=== PATIENT | female | born 1985 | race Caucasian/White ===

== ENCOUNTER → 2017-04-06 05:24 | Observation (INO) ==
[2017-04-06 01:38] LABS: Amphetamine Screen,Urine Negative ng/mL (Cutoff=1000); Barbiturate Screen,Urine Negative ng/mL (Cutoff=200); Benzodiazepines Screen,Urine Negative ng/mL (Cutoff=200); Bilirubin,Urine Negative (Negative); Blood,Urine Negative (Negative); Cannabinoid Screen,Urine Negative ng/mL (Cutoff = 50); Clarity,Urine Cloudy (Clear); Cocaine Screen,Urine Negative ng/mL (Cutoff= 300); Color,Urine Dark Yellow (Yellow); Glucose,Urine (UA) Normal (Normal); Ketones,Urine Negative (Negative); Leukocyte Esterase,Urine Negative (Negative); Nitrite,Urine Negative (Negative); Opiate Screen,Urine Negative ng/mL (Cutoff=300); PH,Urine 5.5 pH Units (5.0-8.0); Phencyclidine Screen,Urine Negative ng/mL (Cutoff=25); Protein,Urine Trace mg/dL (Neg-Trace); Specific Gravity,Urine 1.028 (1.010-1.025); Urobilinogen,Urine Normal (Normal)
[2017-04-06 01:51] LABS: Squamous Epithelial Cell,Urine Many per lpf (None-Few)
[2017-04-06 01:52] LABS: Bacteria,Urine Moderate per hpf (None-Few); Mucus,Urine Few (Few); WBC,Urine 0-3 per hpf (0-3)
--- NOTE | 2017-04-06 02:35 | OB/GYN History & Physical ---
Date of Encounter: 04/06/17 Time of Encounter: 02:15 Assessment and Plan (1) 35 weeks gestation of Current visit: Yes Status: Acute (2) Uterine contractions Current visit: Yes Status: Acute - NST assessment. - UA. Update: Patient showed a reactive NST. She did not show regular contractions indicative of labor. UA was not indicative of infection. UDS was negative. Patient will be discharged home. (3) GERD (gastroesophageal reflux disease) Current visit: Yes Status: Acute Patient will continue taking her home pepcid medication. Qualifiers: Qualified Code(s): K21.9 - Gastro-esophageal reflux disease without esophagitis History of Present Illness Chief complaint: Uterine contractions HPI: Ms. Redmond is a 31 year old female at 35 4/7 weeks gestation with a PMH of three c-sections that presents for labor evaluation. Patient says that she has been feeling regular contractions since yesterday morning. She says they started out 15 minutes apart and then stopped around 5 am this morning. They started back up again around 11 am and were 5 minutes apart then. She denies any vaginal fluid leakage or bleeding. She denies chest pain. She admits to some shortness of breath for the past 3 days. She denies fever. She admits to nausea throughout her , but denies vomiting. She denies KELLEY or vision changes. HepBSAg: Non-reactive (10/29/16) HIV Ag/Ab: Non-reactive T. Pallidum Ab: negative Rubella Ab: positive Varicella Ab: positive Blood Type: O+ Past Med Surg Social Fam HX - Past Medical History Medical history: no medical history Psychiatric history: no psych history - Past Surgical History Surgical History: appendectomy, - Social History Smoking Status: Former smoker Smokeless Tobacco Status: No Alcohol use: none Drug use: none - Family History Father Adopted: No Living Status: Still Living Hx Family Cardiac Disorders: Yes (history of heart attack, heart stents) Hx Family Endocrine Disorder: Yes (borderline diabetic) Obstetrical History - Pregnancies : 5 Para: 3 Term: 3 : 0 Ab's: 1 Livin Medications and Allergies Folic Acid 1 mg PO DAILY 01/02/16 [History] Vitamins 1 tab PO DAILY 01/02/16 [History] Famotidine [Pepcid] 1 tab PO DAILY 04/06/17 [History] 3 Allergy/AdvReac Type Severity Reaction Status Date / Time divalproex sodium Allergy Hives Verified 04/06/17 01:20 [From Depakote] Sulfa (Sulfonamide Allergy Hives Verified 04/06/17 01:20 Antibiotics) Exam - Constitutional Constitutional: well developed, well nourished, no acute distress, obese - Lungs Respiratory exam: CTAB - Cardiovascular Cardiovascular exam: RRR, +S1, +S2 - Abdomen Abdomen: Present: bowel sounds normal, gravid, diffuse tenderness (Minor tenderss to light palpation.) - Extremities Extremities exam: full ROM, normal capillary refill, normal inspection, radial pulses palpable and symmetrical Deep Tendon Reflex Grade: 2+ Normal Results Abnormal lab results Urine Clarity Cloudy (Clear) A 04/06/17 01:15 Ur Specific [place] 1.028 (1.010-1.025) H 04/06/17 01:15 Ur Squamous Epith Cells Many per lpf (None-Few) H 04/06/17 01:15 Urine Bacteria Moderate per hpf (None-Few) H 04/06/17 01:15 All other labs normal. - VTE Reasons for not Prescribing Prophylaxis: Treatment not Indicated - Low risk for VTE
[~2017-04-06 05:24] MED LIST: Famotidine 20 MG TABLET PO ONE
== END | disposition home or self-care (01) ==
LOC: 1NENULAB
PROVIDERS: ADMIT Obstetrics & Gynecology; ATTEND Obstetrics & Gynecology

== ENCOUNTER 2017-04-30 06:22 | Inpatient (IN) ==
[2017-04-30] MEDS ORDERED: Metoclopramide 10 MG/2 ML VIAL IVP ONE (06:46)
[2017-04-30] MEDS ORDERED: Oxytocin 20 units/ LR 1000 mL 20 UNIT/1,000 ML BAG IVC ONE (06:46)
[2017-04-30] MEDS ORDERED: Famotidine 20 MG/2 ML VIAL IVP ONE (06:46)
[2017-04-30] MEDS ORDERED: CeFAZolin Syr 3,000MG/30 ML 3,000 MG/30 ML SYRINGE IVPB ONE (06:46)
[2017-04-30] MEDS ORDERED: Ringers Solution, Lactated 1,000 ML ONE (06:49)
[2017-04-30] MEDS ORDERED: Oxytocin 20 units/ LR 1000 mL 20 UNIT/1,000 ML BAG IVC SCH ×2 (07:00→12:53)
[2017-04-30] MEDS ORDERED: Ringers Solution, Lactated 1,000 ML IVC SCH ×2 (07:00→08:00)
[2017-04-30 07:11] LABS: Basophils % 0.2 %; Eosinophils # 0.2 K/mcL (0.0-0.6); Eosinophils % 1.3 %; Hematocrit 39.6 % (35.3-44.9); Hemoglobin 13.4 g/dL (11.5-15.4); Immature Granulocytes % 0.5 % (0-4); Lymphocytes # 2.5 K/mcL (0.6-4.6); Lymphocytes % 16.7 %; Mean Corpuscular HGB Conc 33.8 g/dL (31.6-35.5); Mean Corpuscular Hemoglobin 29.8 pg (28.0-33.3); Mean Corpuscular Volume 88.2 fL (83.0-100.0); Monocytes % 6.6 %; Neutrophils # 11.2 K/mcL (1.6-8.9); Platelet Count 279 K/mcL (140-400); Red Blood Count 4.49 M/mcL (3.82-4.97); Red Cell Distribution Width 14.6 % (11.5-14.5); Segmented Neutrophils % 74.7 %
--- NOTE | 2017-04-30 07:26 | Anesthesia Evaluation PreOp ---
Date of Encounter: 04/30/17 Time of Encounter: 07:18 - Past History Planned Operation: Spinal for Primary csection Cardiac History: Denies any Significant Hx Pulmonary History: Former smoker SIGNALS COLLECTOR/ANALYST History: Denies Any Significant HX Other Medical History: Denies Any Significant HX, GERD Anesthesia History: No Prior Anesthetic Complications, Past Anesthesia ( appendectomy) : Yes Alcohol Use: none Drug use: none Medications and Allergies Folic Acid 1 mg PO DAILY 01/02/16 [History] Vitamins 1 tab PO DAILY 01/02/16 [History] Famotidine [Pepcid] 1 tab PO DAILY 04/06/17 [History] 3 Allergy/AdvReac Type Severity Reaction Status Date / Time divalproex sodium Allergy Hives Verified 04/06/17 01:20 [From Depakote] Sulfa (Sulfonamide Allergy Hives Verified 04/06/17 01:20 Antibiotics) - Meds/Allergy Pre-op Review Medications Reviewed: Yes Allergies Reviewed: Yes Beta Blockers on Current Med List: No Anesthesia Results - Labs 04/30/17 06:50 Anesthesia Exam Vital Signs Temperature 97.1 F L 04/30/17 06:56 Pulse Rate 97 04/30/17 06:56 Respiratory Rate 16 04/30/17 06:56 Blood Pressure 115/60 04/30/17 06:56 Temperature 97.1 F L 04/30/17 06:56 Pulse Rate 97 04/30/17 06:56 Respiratory Rate 16 04/30/17 06:56 Blood Pressure 115/60 04/30/17 06:56 Height: 5'4" Weight: 126.4kg NPO (# of Hours): 8 Pain Scale: 0 Pain Scale Used: Numeric (1 - 10) - HEENT Pupil (Motor): Pupils equal Mallampati: II Teeth: Normal Oral Opening: Greater than 3 - SIGNALS COLLECTOR/ANALYST LOC: Oriented SIGNALS COLLECTOR/ANALYST Motor: Normal RUE, Normal LUE, Normal RLE, Normal LLE, Normal Face SIGNALS COLLECTOR/ANALYST Sensory: Normal: RUE, LUE, RLE, LLE, Face - Cardiac Rhythm: Regular Murmur: None JVD: No Carotid Bruit: No - Pulmonary Breath Sounds: bilateral Clear Respiratory Effort: Symmetrical Anesthesia Assess/Plan ASA Score: 2 Modified [place] Scale for Level of Consciousness: Cooperative, oriented, and tranquil Anesthetic Plan: Regional Autologous Blood: No Monitoring Plan: Standard Monitors Recovery Plan: PACU
[2017-04-30 07:33] LABS: Amphetamine Screen,Urine Negative ng/mL (Cutoff=1000); Barbiturate Screen,Urine Negative ng/mL (Cutoff=200); Benzodiazepines Screen,Urine Negative ng/mL (Cutoff=200); Cannabinoid Screen,Urine Negative ng/mL (Cutoff = 50); Cocaine Screen,Urine Negative ng/mL (Cutoff= 300); Opiate Screen,Urine Negative ng/mL (Cutoff=300); Phencyclidine Screen,Urine Negative ng/mL (Cutoff=25)
--- NOTE | 2017-04-30 07:38 | OB/GYN History & Physical ---
Date of Encounter: 04/30/17 Time of Encounter: 07:35 Assessment and Plan (1) 39 weeks gestation of Current visit: Yes Status: Acute (2) Previous section complicating Current visit: Yes Status: Chronic The patient is here for a repeat section. She declines a tubal ligation (3) Morbid obesity with BMI of 45.0-49.9, adult Current visit: Yes Status: Chronic The patient has had glucose monitoring during the which has been normal. (4) History of macrosomia in infant in prior , currently in third trimester Current visit: Yes Status: Acute History of Present Illness Chief complaint: Repeat HPI: Ms. Redmond is a 31 year old female at 39 weeks who presents to labor and delivery for a repeat . The patient had considered a tubal ligation but declines it at this time. Her has been complicated by obesity with a BMI over 45, history of preeclampsia, history of spontaneous , 3 previous sections with a short interval between with this . She has a history of macrosomic in a prior . Her blood type is O+, she is rubella immune, varicella immune. She denies any contractions, vaginal bleeding or loss of fluid. Fetus has been active. Current tracing is category 1 Past Med Surg Social Fam HX - Past Medical History Source: patient, old records reviewed Medical history: no medical history Psychiatric history: no psych history - Past Surgical History Surgical History: appendectomy, - Social History Smoking Status: Former smoker Smokeless Tobacco Status: No Alcohol use: none Drug use: none - Family History Father Adopted: No Age: 67 Living Status: Still Living Hx Family Cardiac Disorders: Yes (OPEN HEART) Hx Family Respiratory Disorders: No Hx Family Cancer: No Hx Family GI Disorders: No Hx Family Genitourinary Disorders: No Hx Family Endocrine Disorder: No Hx Family Musculoskeletal Disorders: No Hx Family Neuromuscular Disorders: No Hx Family Neurologic Disorders: No Hx Family HEENT Disorders: No Hx Family Autoimmune Disorders: No Hx Family Reproductive Disorders: No Hx Family Psychosocial Disorders: No Hx Family Medical Disorders: Yes (DIABETIC) Obstetrical History - Pregnancies : 5 Para: 3 Ab's: 1 Livin Medications and Allergies Folic Acid 1 mg PO DAILY 01/02/16 [History] Vitamins 1 tab PO DAILY 01/02/16 [History] Famotidine [Pepcid] 1 tab PO DAILY 04/06/17 [History] 3 Allergy/AdvReac Type Severity Reaction Status Date / Time divalproex sodium Allergy Hives Verified 04/06/17 01:20 [From Depakote] Sulfa (Sulfonamide Allergy Hives Verified 04/06/17 01:20 Antibiotics) Review of System OB All systems PM: reviewed and no additional remarkable complaints except as stated - Constitutional Constitutional ROS IM: weight gain - Muscloskeletal Musculoskeletal: radiating pain into limb (sciatica) Exam - Vital Signs Vital signs: Initial Vital Signs Temp Pulse Resp BP 97.1 F L 97 16 115/60 04/30/17 06:56 04/30/17 06:56 04/30/17 06:56 04/30/17 06:56 - Constitutional Constitutional: well nourished, no acute distress, morbidly obese - HEENT HEENT: Normocephaly, Mucus Membranes Moist - Neck Neck exam: normal inspection, supple - Lungs Respiratory exam: CTAB - Cardiovascular Cardiovascular exam: RRR - Abdomen Abdomen: Present: bowel sounds normal, gravid, non tender - Extremities Extremities exam: normal inspection, pedal edema, warm Deep Tendon Reflex Grade: 2+ Normal - Vulva Vulva: bilateral: normal - Cervix Dilation: 0 Effacement: 0 Station: -3 - Anus/Rectum Anus/Rectum: Present: normal perianal skin Results Result Diagrams: 04/30/17 06:50 Abnormal lab results WBC 15.0 K/mcL (4.3-11.1) H 04/30/17 06:50 RDW 14.6 % (11.5-14.5) H 04/30/17 06:50 Neutrophils # 11.2 K/mcL (1.6-8.9) H 04/30/17 06:50 All other labs normal. - VTE Documentation of Mechanical Device: Intermittent pneumatic compression device
[2017-04-30] MEDS ORDERED: *HR* Morphine Sulfate/PF 5 MG/10 ML AMPUL ONE (07:39)
[2017-04-30] MEDS ORDERED: *HR* Oxytocin 10 UNIT/ML VIAL IM ONE (07:42)
[2017-04-30] MEDS ORDERED: Ondansetron 4 MG/2 ML VIAL IVP ONE (07:49)
[2017-04-30] MEDS ORDERED: *HR* Meperidine 25 MG/ML SYRINGE IVP PRN (07:49)
[2017-04-30] MEDS ORDERED: *HR* HYDROmorphone (PF) 1 MG/ML SYRINGE IVP PRN (07:49)
[2017-04-30] MEDS ORDERED: *HR* Promethazine 25 MG/ML VIAL IVP PRN (07:49)
--- NOTE | 2017-04-30 07:56 | Anesthesia Procedures ---
Date of Encounter: 04/30/17 Time of Encounter: 08:05 Procedures: Anesthesia - Epidural/Spinal Patient ID/Chart reviewed: Yes Patient examined: Yes OB Eval: Gestational age: 39 OB Eval: : 4 OB Eval: Hx Para: 3 OB Eval: Contractions: Non-stressed pattern Consent Obtained: Yes Supplemental Oxygen: None/Room Air Site Prep: Aseptic Technique, Sterile prep and drape, Povidone-Iodine 1% Patient position: upright Local Anesthetic: Lidocaine 1% Amount of Local Anesthetic used: 3 Interspace Used: L4-L5 Loss of Resistance (ELLIOTT): No Blood: No CSF: Yes Paresthesia: No Spinal Needle Gauge: 25 Spinal Dose: Bupivicaine 0.75% 1.6ml morphine 250mcg Procedure: Intrathecal dose administered in upright position 1st pass without any immediate noted complications. VSS and FHT stable throughout. Vitals + FHT's: See anesthesia record.
[2017-04-30] MEDS ORDERED: EPHEDrine 50 MG/ML VIAL ONE (08:09)
[2017-04-30] MEDS ORDERED: *HR* Phenylephrine 10 MG/ML VIAL ONE (08:15)
[2017-04-30] MEDS ORDERED: Dexamethasone 4 MG/ML VIAL ONE (08:32)
[2017-04-30] MEDS ORDERED: Ondansetron 4 MG/2 ML VIAL ONE (08:32)
--- NOTE | 2017-04-30 09:34 | OB/GYN Procedure Note ---
Section - Date of procedure: 04/30/17 Preop diagnosis: desires repeat Post-op diagnosis: same (Thick MSAF) Procedure: section, repeat low transverse Surgeon: Iliana Pandey Estimated blood loss (cc): 500 File Keeper: Deepak Patel Anesthesia Type: Spinal section complications: none Disposition: L&D Recovery Room Specimens: Placenta, Cord blood - Infant (s) Infant A Infant Delivery Date: 04/30/17 Delivery Time: 08:41 Presentation: vertex Route of delivery: other ( section) Gender: Female Viability: Viable Pounds: 7 Ounces: 12 Gram Weight: 3.52 kg at 1 minute: 8 at 5 minutes: 9 Shoulder Dystocia: not encountered Specimens collected: cord blood Placenta: spontaneous, uterine exploration Cord: true knot, 3 umbilical vessels - Narrative Narrative: The patient was taken to the operating room and given spinal anesthesia adequate for abdominal and pelvic surgery. She was prepped and draped in the usual sterile fashion. Timeout was completed. A Pfannenstiel skin incision was made through the previous scar. The subcutaneous tissue was sharply dissected down to the fascia. The fascia was incised in the midline and extended bilaterally with Astudillo scissors.. 2 straight Linh clamps were placed on the inferior fascial edge and the fascia was bluntly and sharply dissected away from the rectus muscles. This was repeated superiorly. The rectus muscles were bluntly bissected. Peritoneum was sharply entered and then extended superiorly and inferiorly confirming there were no anterior adhesions. Bladder blade was placed to protect the bladder. Vesicouterine peritoneum was incised and reflected inferiorly and the bladder blade was replaced to protect the bladder. A low transverse incision was then made through the lower uterine segment down to the amnion. This was bluntly extended bilaterally and extended in a U fashion with bandage scissors.. The amnion was bluntly entered. Thick meconium-stained amniotic fluid was seen. This was followed by the vertex delivery of a viable and vigorous female infant weighing 7#12 oz with Apgars of 8 at 1 minute and 9 at 5 minutes. Infant was bulb suctioned after the head was delivered then placed on the maternal abdomen and bulb suctioned again. The cord was clamped and cut after a delay. A true knot was noted. was handed to the nursery care team. Cord blood was obtained. The placenta was delivered spontaneous and intact. The uterine cavity was digitally palpated and wiped clean with a moist lap sponge. There were no placental remnants identified. A ring forcep was used to make sure the cervix was dilated and then this was discarded off the field. Clamps were placed on the uterine angles and the uterine incision was closed using 0 Vicryl suture in a running, locking fashion. A second imbricating layer completed the uterine closure with 0 Vicryl suture. The uterus was then examined and hemostasis achieved. The pelvis was then irrigated with a copious amount of sterile water. Good hemostasis was identified. Tubes and ovaries were inspected and noted to be grossly normal. The peritoneal edges and rectus muscles were then examined and hemostasis achieved. The fascia was then closed using 0 PDS loop in a running nonlocking fashion. Subcutaneous tissue was irrigated with sterile water, good hemostasis was achieved. The skin was then closed using a 4- 0 Monocryl in a running subcuticular fashion. The incision was then dressed with the faina dressing. Good hemostasis was noted. Estimated blood loss was 500cc. The Bajwa was noted to be draining clear yellow urine at the end of the procedure. All sponge and instrument counts are correct at the end of the procedure. The patient was taken to the recovery room in stable condition.
[2017-04-30] MEDS ORDERED: Acetaminophen 325 MG TABLET PO PRN (12:53)
[2017-04-30] MEDS ORDERED: *HR* OxyCODONE/APAP 5/325 TABLET PO PRN (12:53)
[2017-04-30] MEDS ORDERED: Rho Immune Globulin 1,500 UNIT SYRINGE IM ONE (12:53)
[2017-04-30] MEDS ORDERED: Sennosides 8.6 MG TABLET PO PRN (12:53)
[2017-04-30] MEDS ORDERED: Simethicone 80 MG TAB.CHEW PO PRN (12:53)
[2017-04-30] MEDS ORDERED: Naloxone 0.4 MG/ML INJ IVP PRN (12:53)
[2017-04-30] MEDS ORDERED: Ondansetron 4 MG/2 ML VIAL IVP PRN (12:53)
[2017-04-30] MEDS ORDERED: Metoclopramide 10 MG/2 ML VIAL IVP PRN (12:53)
[2017-04-30] MEDS: Ibuprofen 600 MG TABLET PO SCH ×2 (14:16→19:13)
--- NOTE | 2017-04-30 20:52 | Anesthesia Evaluation Post Op ---
Date of Encounter: 04/30/17 Time of Encounter: 11:00 - Vital Signs Vital Signs: Vital Signs Temperature 97.1 F L 04/30/17 06:56 Pulse Rate 97 04/30/17 06:56 Respiratory Rate 16 04/30/17 06:56 Blood Pressure 115/60 04/30/17 06:56 Temperature 98.5 F 04/30/17 20:00 Pulse Rate 88 04/30/17 20:00 Respiratory Rate 18 04/30/17 20:00 Blood Pressure 108/69 04/30/17 20:00 O2 Sat by Pulse Oximetry 96 04/30/17 20:00 - Lungs Lungs: Clear Ascult./Percussion - Airway Airway: Non-obstructed - Cardiovascular Regular Rate - Mental Status Mental Status: Alert & Oriented, Answers Appropriately - Pain Pain Scale: 3 Pain Scale used: Numeric (1 - 10) - Nausea Vomiting Nausea Vomiting: Not Present - Hydration Hydration: NPO, Bajwa catheter - Discharge PostOp Status: Transfer Patient to floor
[2017-05-01] MEDS: Ibuprofen 600 MG TABLET PO SCH ×2 (06:06→06:07)
[2017-05-01 06:17] LABS: Basophils % 0.2 %; Eosinophils # 0.1 K/mcL (0.0-0.6); Eosinophils % 0.4 %; Hematocrit 31.5 % (35.3-44.9); Immature Granulocytes % 0.6 % (0-4); Lymphocytes # 2.5 K/mcL (0.6-4.6); Lymphocytes % 13.6 %; Mean Corpuscular Hemoglobin 29.9 pg (28.0-33.3); Mean Corpuscular Volume 90.5 fL (83.0-100.0); Mean Platelet Volume 9.9 fL (9.4-12.4); Monocytes # 1.3 K/mcL (0.0-1.3); Monocytes % 7.1 %; Neutrophils # 14.1 K/mcL (1.6-8.9); Platelet Count 238 K/mcL (140-400); Red Blood Count 3.48 M/mcL (3.82-4.97); Red Cell Distribution Width 14.8 % (11.5-14.5); Segmented Neutrophils % 78.1 %
[2017-05-01 06:20] LABS: Hemoglobin 10.4 g/dL (11.5-15.4)
[2017-05-01 08:35] VITALS: BP 123/76
[2017-05-01] MEDS ORDERED: Prenatal Vit/FA 1 EACH TABLET PO SCH ×2 (09:00)
[2017-05-01] MEDS ORDERED: Famotidine 20 MG TABLET PO SCH (09:00)
--- NOTE | 2017-05-01 09:02 | Discharge Summary ---
Date of Encounter: 05/01/17 Time of Encounter: 08:59 - Discharge Diagnosis (1) Status post section Priority: Primary Status: Acute Comments: Pt up and ambulating in room. Pain well managed on minimal medication. Tolerates regular diet, passing flatus, desires discharge. - Discharge Medications Prescriptions: Ibuprofen [Motrin] 600 mg PO Q6HR #60 tablet Docusate [Colace] 100 mg PO BID #60 capsule Ferrous Sulfate 325 mg PO DAILY #60 tablet Home Medications: Vitamins 1 tab PO DAILY 01/02/16 [History] Famotidine [Pepcid] 1 tab PO DAILY 04/06/17 [History] Acetaminophen [Tylenol] 325 mg PO Q6HR PRN tablet 05/01/17 [Rx] Docusate [Colace] 100 mg PO BID #60 capsule 05/01/17 [Rx] Ferrous Sulfate 325 mg PO DAILY #60 tablet 05/01/17 [Rx] Ibuprofen [Motrin] 600 mg PO Q6HR #60 tablet 05/01/17 [Rx] Vit/FA 1 each PO DAILY tablet 05/01/17 [Rx] Vit/FA 1 each PO DAILY tablet 05/01/17 [Rx] Allergies/Adverse Reactions: 3 Allergy/AdvReac Type Severity Reaction Status Date / Time divalproex sodium Allergy Hives Verified 04/06/17 01:20 [From Depakote] Sulfa (Sulfonamide Allergy Hives Verified 04/06/17 01:20 Antibiotics) Data Procedures and tests throughout hospitalization: Laboratory Tests 04/30/17 04/30/17 05/01/17 06:50 06:50 05:50 WBC 15.0 H 18.1 H RBC 4.49 3.48 L Hgb 13.4 10.4 L D Hct 39.6 31.5 L MCV 88.2 90.5 MCH 29.8 29.9 MCHC 33.8 33.0 RDW 14.6 H 14.8 H Plt Count 279 238 MPV 10.0 9.9 Immature Gran % 0.5 0.6 Seg Neutrophils % 74.7 78.1 Lymphocytes % 16.7 13.6 Monocytes % 6.6 7.1 Eosinophils % 1.3 0.4 Basophils % 0.2 0.2 Neutrophils # 11.2 H 14.1 H Lymphocytes # 2.5 2.5 Monocytes # 1.0 1.3 Eosinophils # 0.2 0.1 Basophils # 0.0 0.0 Urine Opiates Screen Negative Ur Barbiturates Screen Negative Ur Phencyclidine Scrn Negative Ur Amphetamines Screen Negative U Benzodiazepines Scrn Negative Urine Cocaine Screen Negative U Marijuana (THC) Screen Negative Labs on day of discharge: Labs from last 24 hours 05/01/17 05:50 WBC 18.1 H RBC 3.48 L Hgb 10.4 L D Hct 31.5 L MCV 90.5 MCH 29.9 MCHC 33.0 RDW 14.8 H Plt Count 238 MPV 9.9 Immature Gran % 0.6 Seg Neutrophils % 78.1 Lymphocytes % 13.6 Monocytes % 7.1 Eosinophils % 0.4 Basophils % 0.2 Neutrophils # 14.1 H Lymphocytes # 2.5 Monocytes # 1.3 Eosinophils # 0.1 Basophils # 0.0 Date of admission: 04/30/17 06:22 Primary care physician: PCP NONE Discharging clinician: Leah Hutson Anticipated date of discharge: 05/01/17 - Patient Status Disposition: Home, Self-Care Condition: Good Functional capacity at discharge: independent ambulation Overall status at discharge: patient is back to baseline - Discharge Instructions Follow Up With: NONE,PCP [Primary Care Provider] - - Diet and Activity Activity: resume usual activities as tolerated Diet: regular diet Hospital Course Reason for admission: section, IUP at term Delivery: section Episiotomy: none Laceration: none Other procedures: none complications: none Discharge diagnosis: IUP at term delivered [place] baby: female Hospital course: Section - Date of procedure: 04/30/17 Preop diagnosis: desires repeat Post-op diagnosis: same (Thick MSAF) Procedure: section, repeat low transverse Surgeon: Iliana Pandey Estimated blood loss (cc): 500 Combat Systems Operator: Deepak Patel Anesthesia Type: Spinal section complications: none Disposition: L&D Recovery Room Specimens: Placenta, Cord blood - (s) A Infant Delivery Date: 04/30/17 Delivery Time: 08:41 Presentation: vertex Route of delivery: other ( section) Gender: Female Viability: Viable Pounds: 7 Ounces: 12 Gram Weight: 3.52 kg at 1 minute: 8 at 5 minutes: 9 Shoulder Dystocia: not encountered Specimens collected: cord blood Placenta: spontaneous, uterine exploration Cord: true knot, 3 umbilical vessels Stable in and appropriate for discharge Time Attestation: Total time spent providing and/or coordinating discharge services: - VTE Reasons for not Prescribing Prophylaxis: Treatment not Indicated - Low risk for VTE Documentation of Mechanical Device: Intermittent pneumatic compression device Exam - Constitutional Vitals: Temp Pulse Resp BP Pulse Ox 98.4 F 98 16 123/76 96 05/01/17 08:15 05/01/17 08:15 05/01/17 08:15 05/01/17 08:15 05/01/17 08:15 General appearance IM: A&O X 3 - Respiratory Respiratory exam: Present: CTAB - Cardiovascular Cardiovascular exam IM: Present: RRR - GI/Abdominal GI/Abdominal exam IM: normal bowel sounds Incision: dressed (TARA in place. ) - Uterus Position: At Umbilicus - Extremities Exam Extremities exam IM: Present: normal capillary refill, normal inspection - Neurological Exam Neurological exam: normal gait, oriented X3, reflexes normal - Psychiatric Additional comments: Reports good mood.
== END 2017-05-01 11:09 | disposition home or self-care (01) | DRG 540 ==
LOC: 1NENULAB 06:22 → 1NENUOBS 12:07
PROVIDERS: ADMIT Obstetrics & Gynecology; ATTEND Obstetrics & Gynecology